=== PATIENT | female | born 1960 | race Caucasian/White ===

== ENCOUNTER 2023-03-30 10:10 | Emergency (ER) | payer OTHER ==
[~2023-03-30] VITALS: Ht 160 cm; Wt 95.5 kg
[2023-03-30 10:23] VITALS: TEMP 98.2
[2023-03-30 11:27] LABS: BASOPHILS # (AUTO) 0.1 X10'3 (0-0.2); EOSINOPHILS # (AUTO) 0.4 X10'3 (0-0.9); EOSINOPHILS % (AUTO) 5.1 % (0-6); HEMATOCRIT 37.6 % (35.0-45.0); HEMOGLOBIN 12.8 g/dl (12.0-16.0); LYMPHOCYTES # (AUTO) 2.6 X10'3 (1.1-4.8); LYMPHOCYTES % (AUTO) 32.3 % (21-51); MEAN CORPUSCULAR HEMOGLOBIN 29.5 PG (27.0-31.0); MEAN CORPUSCULAR HGB CONC 34.2 g/dL (33.0-36.5); MEAN CORPUSCULAR VOLUME 86.3 FL (78-98); MEAN PLATELET VOLUME 8.9 FL (7.4-10.4); MONOCYTES # (AUTO) 0.4 X10'3 (0-0.9); MONOCYTES % (AUTO) 5.1 % (2-12); NEUTROPHILS # (AUTO) 4.6 X10'3 (1.8-7.7); NEUTROPHILS % (AUTO) 56.5 % (42-75); PLATELET COUNT 238 X10'3 (140-440); RED BLOOD COUNT 4.35 X10'6 (4.20-5.60); RED CELL DISTRIBUTION WIDTH 16.9 % (11.5-14.5); WHITE BLOOD COUNT 8.1 X10'3 (4.5-11.0)
[2023-03-30 11:39] LABS: APTT 27 SECONDS (22-32); PROTHROMBIN TIME 10.5 SECONDS (9.0-12.0)
[2023-03-30 11:42] LABS: ALANINE AMINOTRANSFERASE 30 U/L (12-78); ALBUMIN 3.5 G/DL (3.4-5.0); ALBUMIN/GLOBULIN RATIO 0.9 (1.1-1.5); ALKALINE PHOSPHATASE 132 IU/L (46-116); ANION GAP 4 (8-16); ASPARTATE AMINO TRANSFERASE 21 U/L (10-37); BILIRUBIN,TOTAL 0.4 MG/DL (0.1-1.0); BLOOD UREA NITROGEN 16 MG/DL (7-18); BUN/CREATININE RATIO 25.4 (10.0-20.0); CALCIUM 9.7 MG/DL (8.5-10.1); CHLORIDE 96 MMOL/L (99-107); CREATININE 0.63 MG/DL (0.40-0.90); GLUCOSE 105 MG/DL (70-104); POTASSIUM 3.3 MMOL/L (3.5-5.1); SODIUM 136 MMOL/L (135-145); TOTAL CARBON DIOXIDE 35.9 MMOL/L (24-32); TOTAL PROTEIN 7.5 G/DL (6.4-8.2); eCRCL 77 ML/MIN; eGFR > 90 ML/MIN
[2023-03-30] MEDS ORDERED: iohexol 300mg/ml 100ml inj. ONE (12:15)
[2023-03-30] MEDS ORDERED: LORazepam 1 MG tablet PO ONE (13:00)
[2023-03-30] MEDS ORDERED: ondansetron/PF 4mg/2ml inj IV ONE (13:00)
[2023-03-30] MEDS ORDERED: acetaminophen 325mg tablet PO ONE (13:00)
[2023-03-30] MEDS ORDERED: ketorolac trometh. 30mg/ml inj. IV ONE (13:00)
[2023-03-30] MEDS ORDERED: morphine 4 MG/ML inj SYRINge IV ONE (13:00)
[2023-03-30] MEDS ORDERED: NAPR-56 PO (14:35)
[2023-03-30] MEDS ORDERED: CYCL15CA23 PO (14:35)
[2023-03-30] MEDS ORDERED: PANT-47 PO (14:35)
[2023-03-30] MEDS ORDERED: HYDR-3973 PO ×2 (14:35→14:40)
[2023-03-30 16:01] VITALS: BP 150/87; PULSE 69; RESP 18; O2SAT 94
== END 2023-03-30 16:13 | disposition home or self-care (01) ==
LOC: ER 10:10
DX: M54.2 Cervicalgia (principal); M43.6 Torticollis
CPT/HCPCS: 70450; 72125; 80053; 85025; 85610; 85730; 96374; 96375; 99285; J1885; J2270; J2405; L0172; J3490; Q9967

== ENCOUNTER 2023-10-14 15:08 | Outpatient (CLI) | payer OTHER ==
[~2023-10-14 15:08] MED LIST: CYCL15CA23 PO; HYDR-3973 PO; PANT-47 PO
== END 2023-10-14 23:59 | disposition home or self-care (01) ==
LOC: MRI 15:08
PROVIDERS: ATTEND Physician Assistant Surgical
DX: M47.812 Spondylosis without myelopathy or radiculopathy, cervical region (principal); M48.03 Spinal stenosis, cervicothoracic region; M54.2 Cervicalgia; M25.78 Osteophyte, vertebrae
CPT/HCPCS: 72141